=== PATIENT | male | born 1940 | race Caucasian/White ===

== ENCOUNTER 2021-04-08 21:00 | Emergency (ER) | payer MEDICARE, OTHER ==
[~2021-04-08] VITALS: Ht 185.4 cm; Wt 69.9 kg
[~2021-04-08 21:00] MED LIST: LEVO50TA6 PO; VERA300C6 PO; WARF6TAB PO
--- NOTE | 2021-04-08 21:20 | NUR ---
Patient presents to ED for C/O arm injury. Patient states, "I been having spells where I pass out and this happened on Monday. The ambulance took me to [facility] and they ran tests and sent me home. Tonight at the supper table my noticed that my arm was black and blue and there was a bump on it. It is a little bit tender, but we talked to our daughter, who is a nurse, and she said to come in and have it looked at." Patient is alert, no signs of distress noted. There is bruising to right forearm, with a hematoma present. Patient denies pain, just tenderness when touched. No other complaints at this time.
[2021-04-08 21:31] VITALS: BP 156/91
--- NOTE | 2021-04-08 21:50 | ER.PDOC ---
General Chief Complaint: Extremities Stated Complaint: ARM INJURY/FALL Time seen by MD: 21:30 Source: patient, family History of Present Illness Initial Comments Patient present to the ER with the CC of having a bump underneath an bruise on top of the right arm. Patient had a recent fall and he was clear from it. Today his found a bump on his arm and become very concern about it. Patient is taking cephalexin for a foot surgery. Patient denies fever or chills. No swollen lymph nodes. Patient denies Chest pain, cough or shortness of breath. No Respiratory distress. Patient denies urinary symptoms or discharge. No Nausea, vomit diarrhea or abdominal pain. No back pain or neck pain/ stiffness. Patient does not look toxic or in acute distress Occurred: yesterday Recent Injury: No Where: home Severity: mild Exacerbated By: nothing Relieved By: nothing Allergies: Coded Allergies: Sulfa (Sulfonamide Antibiotics) (Unverified Allergy, Unknown, 04/12/14) Past Medical History Medical History: cardiac problems, high cholesterol, heart attack, hypertension Surgical History: appendectomy, cholecystectomy Social History Alcohol Use: none Drug Use: none Review of Systems Constitutional: no symptoms reported EENTM: no symptoms reported Respiratory: no symptoms reported Cardiovascular: no symptoms reported Gastrointestinal: no symptoms reported Musculoskeletal: no symptoms reported Skin: see HPI Psychiatric/Neurological: no symptoms reported Physical Exam General Appearance: alert, no distress Upper Extremity: non-tender, no edema, nml ROM Skin: warm/dry, erythema (Large bruise with a significant 4 x 2.5 cm raised 0.7 cm hemathoma under the skin) Vascular: no vascular compromise Neuro/Psych: sensation nml, motor nml Central Exam: oriented X3, CN's nml as tested, nml speech, nml cognition, nml mood/affect Neck/Back: nml inspection Respiratory: no resp distress CVS: reg rate & rhythm Abdomen: non-tender, nml bowels sounds Results/Orders Results/Orders Vital Signs Date Time Temp Pulse Resp B/P (MAP) Pulse Ox O2 Delivery O2 Flow Rate FiO2 04/08/21 21:31 97.8 73 18 04/08/21 21:31 97.8 73 18 96 04/08/21 21:31 97.8 73 18 156/91 (112) 96 Room Air ER DEPART Departure Time of Disposition: 21:49 Disposition: 01 HOME / SELF CARE / HOMELESS Impression: Primary Impression: Hematoma and contusion Condition: Improved Comments Apply compression bandage to affected area and follow up with your PCP. Compreh ensive ER evaluation was performed of the patient's symptoms Patient was given the opportunity to have all of them questions addressed. Medication side effects and Propper use of the medication discussed in detail. Patient was involved in the medical decision making. Patient voiced understanding and agreement with the plan of care.. Follow up with your Primary Care Provider for further treatment and management. Take your medication as prescribed. Drink plenty of fluids and avoid fast food and process foods. Use OTC medication as need it. If symptoms worsens or new symptoms start please return to the ER. The patient is stable and no toxic at the moment of the Discharge. Duration or Time Spent with Pa: 10 CHRISTIANO CHAVEZ MD Apr 08, 2021 21:50
== END 2021-04-08 22:05 | disposition home or self-care (01) ==
LOC: ER 21:00
DX: S40.021A Contusion of right upper arm, initial encounter (principal); E78.00 Pure hypercholesterolemia, unspecified; I10 Essential (primary) hypertension; I25.2 Old myocardial infarction; Z88.2 Allergy status to sulfonamides; Z90.49 Acquired absence of other specified parts of digestive tract; W19.XXXA Unspecified fall, initial encounter; Y93.89 Activity, other specified; Y92.89 Other specified places as the place of occurrence of the external cause; Y99.8 Other external cause status
CPT/HCPCS: 99281; 99284